=== PATIENT | female | born 1955 | race Caucasian/White ===

== ENCOUNTER 2020-09-19 06:00 | Day surgery (SDC) | payer BC, OTHER ==
[~2020-09-19 06:00] MED LIST: Acetaminophen 325 MG Tab PO SCH; Pregabalin 25 MG Cap PO SCH; oxyCODONE ER 10 MG TAB.ER PO SCH
[2020-09-19] MEDS ORDERED: Bupivacaine 0.25% 10 ML SDV ONE (06:23)
[2020-09-19] MEDS ORDERED: Vancomycin 1 GM SDV ONE (06:23)
[2020-09-19] MEDS ORDERED: Ropivacaine 0.5% 5 MG/ML 30 ML SDV ONE (06:32)
[2020-09-19] MEDS ORDERED: EPINEPHrine 1 MG/ML SDV ONE (06:32)
[2020-09-19] MEDS ORDERED: Lidocaine 1% 4 ML ONE (06:35)
[2020-09-19] MEDS ORDERED: Midazolam 1 MG/ML 2 ML SDV ONE (06:35)
[2020-09-19] MEDS ORDERED: ceFAZolin 1 GM Vial ONE (06:35)
[2020-09-19] MEDS ORDERED: Lactated Ringers 1,000 ML ONE (06:35)
[2020-09-19] MEDS ORDERED: Propofol 200 MG/20 ML SDV ONE (06:35)
[2020-09-19] MEDS ORDERED: Ondansetron 4 MG/2 ML SDV ONE (06:35)
[2020-09-19] MEDS ORDERED: fentaNYL 250 MCG/5 ML SDV ONE (06:36)
[2020-09-19] MEDS ORDERED: Dexamethasone 4 MG/ML 5 ML MDV ONE (06:36)
[2020-09-19] MEDS ORDERED: Sodium Chloride 0.9% 10 ML Syringe FLUSH PRN (07:00)
[2020-09-19] MEDS ORDERED: Lidocaine 1%/Sod Bicarbonate in NS 8.4% 1 ML Syringe IDERM PRN (07:00)
[2020-09-19] MEDS ORDERED: Lactated Ringers 1,000 ML IV SCH (07:00)
[2020-09-19] MEDS ORDERED: Ketorolac 15 MG/ML SDV ONE (08:06)
[2020-09-19] MEDS ORDERED: Ketamine 500 mg/10 ML MDV ONE (08:12)
[2020-09-19] MEDS ORDERED: HYDROmorphone 0.5 MG/0.5 ML Syringe IVPUSH PRN (08:20)
[2020-09-19] MEDS ORDERED: Ondansetron 4 MG/2 ML SDV IVPUSH PRN (08:20)
[2020-09-19] MEDS ORDERED: fentaNYL 100 MCG/2 ML SDV IVPUSH PRN (08:20)
--- NOTE | 2020-09-19 08:20 | PCM.PREANE ---
Preanesthetic Assessment - Procedure Proposed Procedure: Right Reverse Total Shoulder - Anesthesia/Transfusion/Family Hx Anesthesia History: Prior Anesthesia Without Reaction Family History of Anesthesia Reaction: No - Review of Systems General: No Symptoms Pulmonary: Cough (Mornings. 11/18 ppd smoker ) Cardiovascular: No Symptoms Gastrointestinal: No Symptoms Neurological: No Symptoms Other: Reports: None - Physical Assessment NPO Status Date: 09/18/20 NPO Status Time: 23:30 Vital Signs: Last Vital Signs Temp 36.7 C 09/19/20 06:22 Pulse 81 09/19/20 07:04 Resp 22 H 09/19/20 07:04 BP 99/56 L 09/19/20 07:04 Pulse Ox 97 09/19/20 07:04 Height: 1.55 m Weight: 52.617 kg ASA Class: 2 Mental Status: Alert & Oriented x3 Airway Class: Mallampati = 2 Dentition: Reports: Partial (Upper) Thyro-Mental Finger Breadths: 2 Mouth Opening Finger Breadths: 3 ROM/Head Extension: Full Lungs: Clear to Auscultation, Normal Respiratory Effort Cardiovascular: Regular Rate, Regular Rhythm - Lab Values: Laboratory Last Values MRSA (PCR) Negative 09/03/20 16:35 - Allergies Allergies/Adverse Reactions: Allergies Allergy/AdvReac Type Severity Reaction Status Date / Time No Known Allergies Allergy Verified 09/18/20 15:07 - Anesthesia Plan Pre-Op Medication Ordered: Anxiolytic - Acknowledgements Anesthesia Type Planned: General Anesthesia, Regional Block (Preoperative Interscalene nerve block for post op pain management) Pt an Appropriate Candidate for the Planned Anesthesia: Yes Alternatives and Risks of Anesthesia Discussed w Pt/Guardian: Yes Pt/Guardian Understands and Agrees with Anesthesia Plan: Yes PreAnesthesia Questionnaire HEENT History: Reports: Impaired Vision Cardiovascular History: Reports: None Respiratory History: Reports: None Gastrointestinal History: Reports: None 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 Musculoskeletal History: Reports: None Neurological History: Reports: None Psychiatric History: Reports: None Endocrine/Metabolic History: Reports: None Hematologic History: Reports: None Immunologic History: Reports: None Oncologic (Cancer) History: Reports: None Dermatologic History: Reports: None - Infectious Disease History Infectious Disease History: Reports: None - Past Surgical History Head Surgeries/Procedures: Reports: None HEENT Surgical History: Reports: Cataract Surgery Cardiovascular Surgical History: Reports: None Respiratory Surgical History: Reports: None GI Surgical History: Reports: None Female Surgical History: Reports: Tubal Ligation Male Surgical History: Reports: None Endocrine Surgical History: Reports: None Neurological Surgical History: Reports: None Musculoskeletal Surgical History: Reports: None Oncologic Surgical History: Reports: None Dermatological Surgical History: Reports: None - SUBSTANCE USE Tobacco Use Status *Q: Current Every Day Tobacco User Recreational Drug Use History: No - HOME MEDS Home Medications: Home Meds Acetaminophen [Tylenol] 650 mg PO Q6H PRN 09/18/20 [History] Calcium Carbonate [Calcium] 500 mg PO DAILY 09/18/20 [History] Cholecalciferol (Vitamin D3) [Vitamin D3] 5,000 unit PO DAILY 09/18/20 [History] Ibuprofen 200 - 600 mg PO Q6H PRN 09/18/20 [History] Multivitamin [Poly-Vitamin] 1 tab PO DAILY 09/18/20 [History] Naproxen Sodium [Aleve] 220 mg PO TID PRN 09/18/20 [History] Vit A/Vit C/Vit E/Zinc/Copper [Preservision Areds Softgel] 1 tab PO DAILY 09/18/20 [History] Aspirin [Aspirin EC] 325 mg PO DAILY #40 tablet.dr 09/19/20 [Rx] Cyclobenzaprine [Flexeril] 10 mg PO BID PRN #20 tab 09/19/20 [Rx] oxyCODONE 5 - 10 mg PO Q4H PRN #60 tab 09/19/20 [Rx] - CURRENT (IN HOUSE) MEDS Current Meds: Current Medications Acetaminophen (Tylenol) 975 mg PO ONETIME [facility] Stop: 09/19/20 16:00 Last Admin: 09/19/20 06:22 Dose: 975 mg Documented by: Lactated Ringer's (Ringers, Lactated) 1,000 mls @ 125 mls/hr IV ASDIRECTED [facility] Stop: 09/19/20 23:00 Last Admin: 09/19/20 06:20 Dose: 125 mls/hr Documented by: Lidocaine/Sodium Bicarbonate (Buffered Lidocaine 1% In Ns 8.4%) 0.25 ml IDERM ONETIME PRN PRN Reason: Prior to IV Start Stop: 09/19/20 23:00 Last Admin: 09/19/20 06:31 Dose: 0.25 ml Documented by: Oxycodone HCl (Oxycontin) 10 mg PO ONETIME [facility] Stop: 09/19/20 16:00 Last Admin: 09/19/20 06:24 Dose: 10 mg Documented by: Pregabalin (Lyrica) 50 mg PO ONETIME [facility] Stop: 09/19/20 16:00 Last Admin: 09/19/20 06:25 Dose: 50 mg Documented by: Sodium Chloride (Saline Flush) 10 ml FLUSH ASDIRECTED PRN PRN Reason: Keep Vein Open Stop: 09/19/20 18:00 Discontinued Medications Bupivacaine HCl (Sensorcaine-Mpf 0.25%) Confirm Administered Dose 30 ml .ROUTE .STK-MED ONE Stop: 09/19/20 06:24 Cefazolin Sodium (Ancef) Confirm Administered Dose 2 gm .ROUTE .STK-MED ONE Stop: 09/19/20 06:36 Dexamethasone (Dexamethasone) Confirm Administered Dose 20 mg .ROUTE .STK-MED ONE Stop: 09/19/20 06:37 Epinephrine HCl (Adrenalin) Confirm Administered Dose 1 mg .ROUTE .STK-MED ONE Stop: 09/19/20 06:33 Fentanyl (Sublimaze) Confirm Administered Dose 250 mcg .ROUTE .STK-MED ONE Stop: 09/19/20 06:37 Lidocaine HCl (Xylocaine-Mpf 1%) Confirm Administered Dose 4 mls @ as directed .ROUTE .STK-MED ONE Stop: 09/19/20 06:36 Lactated Ringer's (Ringers, Lactated) Confirm Administered Dose 1,000 mls @ as directed .ROUTE .STK-MED ONE Stop: 09/19/20 06:36 Ketamine HCl (Ketalar) Confirm Administered Dose 500 mg .ROUTE .STK-MED ONE Stop: 09/19/20 08:13 Ketorolac Tromethamine (Toradol) Confirm Administered Dose 15 mg .ROUTE .STK-MED ONE Stop: 09/19/20 08:07 Midazolam HCl (Versed 1 Mg/Ml) Confirm Administered Dose 2 mg .ROUTE .STK-MED ONE Stop: 09/19/20 06:36 Miscellaneous Medication (Phenylephrine 1 Mg/10 Ml-Ns) Confirm Administered Dose 1 mg .ROUTE .STK-MED ONE Stop: 09/19/20 08:07 Ondansetron HCl (Zofran) Confirm Administered Dose 4 mg .ROUTE .STK-MED ONE Stop: 09/19/20 06:36 Propofol (Diprivan 20 Ml) Confirm Administered Dose 400 mg .ROUTE .STK-MED ONE Stop: 09/19/20 06:36 Ropivacaine (Naropin 0.5%) Confirm Administered Dose 30 ml .ROUTE .STK-MED ONE Stop: 09/19/20 06:33 Tranexamic Acid (Cyklokapron) Confirm Administered Dose 1,000 mg .ROUTE .STK-MED ONE Stop: 09/19/20 06:24 Vancomycin HCl (Vancomycin) Confirm Administered Dose 1 gm .ROUTE .STK-MED ONE Stop: 09/19/20 06:24
--- NOTE | 2020-09-19 08:24 | PCM.SN.2 ---
- Free Text/Narrative Note: Anesthesia Procedure Note: (Interscalene Block Note) Date: 09/19/2020 Time Out: 0651 Start: 0655 Stop: 0704 Current Procedure: Right Interscalene Block under US guidance for postoperative pain control requested by Dr. Betts. Patient chart reviewed, risk/benefits discussed with patient, consent obtained. Patient positioned supine, monitors/alarms on, oxygen placed via nasal cannula at 2 LPM. Right shoulder prepped with two chloropreps. Sterile drapes placed with aseptic technique noted. Under US guidance right subclavian artery visualized along with the left brachial plexus. Plexus followed up to C6 cricoid level, and area localized with 1mls of 1% lidocaine. 22gauge 2 inch stimiplex needle advanced under US with 0.6mV with stimulation of biceps noted. Good stimulation noted with decreased voltage and absent at 0.2mVs. 1ml of Normal Saline injected with loss of stimulation noted to confirm needle not placed intraneurally. Incremental dosing of 5mls with negative aspiration noted prior to each injection of 0.5% ropivacaine with 1:200,000 epinephrine. Total volume=30mls. Mrs. Simpson tolerated the procedure well. No complications were noted. Vital signs stable throughout the procedure. See Nursing Notes for vital signs. Vital signs stable throughout. Garcia Lara CRNA
--- NOTE | 2020-09-19 09:21 | PCM.POSTAN ---
POST ANESTHESIA ASSESSMENT - MENTAL STATUS Mental Status: Alert, Oriented - VITAL SIGNS Vital Signs: Last Vital Signs Temp 36.7 C 09/19/20 06:22 Pulse 81 09/19/20 07:04 Resp 22 H 09/19/20 07:04 BP 99/56 L 09/19/20 07:04 Pulse Ox 97 09/19/20 07:04 0915 97 f 88 17 98% 109/84 - RESPIRATORY Respiratory Status: Respiratory Rate WNL, Airway Patent, O2 Saturation Stable, Supplemental Oxygen - CARDIOVASCULAR CV Status: Pulse Rate WNL, Blood Pressure Stable - GASTROINTESTINAL GI Status: No Symptoms - PAIN Pain Score: 0 - POST OP HYDRATION Hydration Status: Adequate & Stable
--- NOTE | 2020-09-19 12:34 | CR ---
"PROCEDURE INFORMATION: Exam: FL Fluoroscopy, Up to 1 Hour Physician Time; Radiologist Not Present For Fluoroscopy Exam date and time: 09/19/2020 9:43 AM Age: 65 years old Clinical indication: Device placement; Additional info: Right total reverse shoulder replacement; Intraoperative films TECHNIQUE: Imaging protocol: Fluoroscopy , up to 1 hour physician or other qualified health sub acute care nurse time. This radiologist did not supervise this procedure. Exam supervised by facility personnel. Report for radiation dosage reporting and documentation only. COMPARISON: No relevant prior studies available. RADIATION DOSE METRICS: Fluoroscopy time (seconds): 4.5 seconds, continuous mode. Number of fluoro spot images: 4 submitted. Reference air kerma (RAFFY): Not provided. FINDINGS: Procedural imaging: Images submitted during sequential placement of the humeral component of the reverse arthroplasty, initial images demonstrate preceding placement of scapular glenoid component. Final images in the frontal projection demonstrate final position of the components which appear to be in good alignment. Notes: Fluoroscopy supervised by facility personnel. See also separate procedure report. The interpreting radiologist was not present at the fluoroscopy. IMPRESSION: Fluoroscopy dosage documentation. See also separate procedure notes. Thank you for allowing us to participate in the care of your patient. [facility] | Final Radiology Report CONFIDENTIALITY STATEMENT This report is intended only for use by the referring physician, and only in accordance with law. If you received this in error, call [phone]. Page 2 of 2 Dictated and Authenticated by: Olu Cruz MD 09/19/2020 10:25 AM Central Time ([place] & [place]) [facility]"
--- NOTE | 2020-09-19 12:38 | CR ---
PROCEDURE INFORMATION: Exam: XR Right Shoulder Exam date and time: 09/19/2020 10:31 AM Age: 65 years old Clinical indication: Screening exam; Post op TECHNIQUE: Imaging protocol: XR Right shoulder. Views: AP portable single view. COMPARISON: No relevant prior studies available. FINDINGS: Bones/joints: Right shoulder reverse arthroplasty. Appropriate component position and alignment. Soft tissues: Operative site soft tissue emphysema. IMPRESSION: 1. Postoperative changes as above. 2. No acute bony or hardware abnormality identified. Thank you for allowing us to participate in the care of your patient. Dictated and Authenticated by: Olu Cruz MD 09/19/2020 12:09 PM Central Time ([place] & [place]) [facility]
--- NOTE | 2020-09-20 16:11 | PCM48HPAN ---
Post Anesthesia Note - EVALUATION WITHIN 48HRS OF ANESTHETIC Vital Signs in Normal Range: Yes Patient Participated in Evaluation: Yes Respiratory Function Stable: Yes Airway Patent: Yes Cardiovascular Function Stable: Yes Hydration Status Stable: Yes Pain Control Satisfactory: Yes Nausea and Vomiting Control Satisfactory: Yes Mental Status Recovered: Yes Vital Signs: Last Vital Signs Temp 36.1 C 09/19/20 11:46 Pulse 88 09/19/20 11:46 Resp 16 09/19/20 11:46 BP 115/65 09/19/20 11:46 Pulse Ox 96 09/19/20 11:46
--- NOTE | 2020-10-04 12:43 | PCM.OPNOTE ---
- General Post-Op/Procedure Note Date of Surgery/Procedure: 09/19/20 Operative Procedure(s): right reverse total shoulder arthroplasty Pre Op Diagnosis: right shoulder rotator cuff tear arthropathy Post-Op Diagnosis: Same Anesthesia Technique: General ET Tube, Regional Block Primary Surgeon: Alberto Betts Anesthesia Provider: Lyudmila Lara Traffic Supervisor: Sherry Monteiro Traffic Supervisor: Kirsten Mir EBL in mLs: 80 Complications: None Condition: Good Free Text/Narrative:: 28 baseplate 11mm stem 32+6 glenosphere +4 poly
--- NOTE | 2020-10-04 13:56 | OR ---
DATE OF OPERATION: 09/19/2020 SURGEON: Alberto Betts MD OPERATION PERFORMED: Right reverse total shoulder arthroplasty. PREOPERATIVE DIAGNOSIS: Right shoulder rotator cuff tear arthropathy. POSTOPERATIVE DIAGNOSIS: Right shoulder rotator cuff tear arthropathy. ANESTHESIA: General endotracheal intubation with regional interscalene block. ANESTHESIA PROVIDER: Dr. Mirtha Schwartz. DECK WORKER: Kirsten Mir LPN ESTIMATED BLOOD LOSS: 80 mL. COMPLICATIONS: None. CONDITION: Stable. IMPLANTS: 1. Abdon size 28 mm concentric glenoid base plate. 2. Abdon 11 mm humeral stem 135 degree. 3. 32 +6 mm glenosphere. 4. 36 +4 mm polyethylene liner. DESCRIPTION OF PROCEDURE: The patient was identified in the preoperative holding area. Proper site was marked and identified by the surgeon. The patient was taken back to the operative theater, where after adequate anesthesia, the patient's right upper extremity was sterilely prepped and draped in usual sterile fashion. OR time- out was performed. The patient received 2 g IV Ancef. At this time, standard deltopectoral incision was made after the patient was placed in reverse Trendelenburg position. This was taken down to the cephalic vein. The cephalic vein was identified. The deltopectoral interval was exposed. A Fukuda retractor was then used to retract the cephalic vein as well as the deltoid laterally. Hohmann was used to retract the pectoralis tendon medially. At this time, the clavipectoral fascia was incised and the conjoint tendon was retracted medially. Anterior humeral circumflex vessels were then ligated. Biceps tendon was identified and sub-pec tenodesis was performed. Resection of the biceps tendon was then done all the way back to the level of the glenoid. Peel down of the subscapularis tendon was then done and the humeral head was then dislocated. At this time, humeral head cut was then completed and found to be adequate. Attention was turned to the glenoid. Anterior and posterior glenoid retractors were placed. Circumferential removal of any remaining labrum as well as biceps was done at this time as well as a partial capsulectomy. Guide pin was then placed in a center-center position with roughly 10 to 20 degrees of inferior tilt and 28 mm concentric reamer was then utilized until there was good bleeding cancellous bone. The 28 mm glenoid base plate was then screwed into place with a central compression screw and then an inferior and superior locking screw in divergent fashion were placed. All were found to have adequate purchase. A 32 +6 glenosphere was then impacted into place and was found to be securely fixed. Attention was turned to the humerus again. Starting with an 8 broach, I was able to broach up to a size 13, which was found to be rotationally and vertically stable. Calcar planer was then used to the humerus and the trial +4 liner was reduced. The patient was found to have full range of motion with no over-tensioning of the deltoid or the conjoint tendon. C-arm fluoroscopy showed all parts to be properly positioned with no signs of fracture. At this time, it was dislocated. The size 11 stem 135 degree with +4 poly was then constructed on the back table. This was then impacted into the humerus en bloc and the shoulder was then reduced. C-arm fluoroscopy showed all components to be well aligned throughout range of motion. 1 L of pulse lavage irrigation with Ancef was irrigated through the right shoulder and then Irrisept was irrigated through the right shoulder. Topical tranexamic acid and vancomycin powder were applied. 2-0 Vicryl was used subcutaneously. Prineo was used for the skin. The patient tolerated the procedure well and was sent to PACU in stable condition with a sterile soft dressing and a pillow sling. MMTRUE /[id number]
== END 2020-09-19 12:30 | disposition home or self-care (01) ==
LOC: JD.SDS 06:00
PROVIDERS: ATTEND Orthopaedic Surgery
DX: M75.101 Unspecified rotator cuff tear or rupture of right shoulder, not specified as traumatic (principal); M12.811 Other specific arthropathies, not elsewhere classified, right shoulder; F17.210 Nicotine dependence, cigarettes, uncomplicated; G89.18 Other acute postprocedural pain; Z79.899 Other long term (current) drug therapy; Z98.890 Other specified postprocedural states; Z79.82 Long term (current) use of aspirin
CPT/HCPCS: 23474; 73020; 76000; 87641; 97110; 97161; 97165; A9270; C1713; C1769; C1776; J0171; J0690; J1100; J1885; J2001; J2250; J2370; J2405; J2704; J2795; J3010; J3370; J7120; 01638; 64415; J3490

== ENCOUNTER 2020-09-22 13:31 | Emergency (ER) | payer OTHER ==
--- NOTE | 2020-09-22 14:50 | EDM.PDOC ---
ED HPI GENERAL MEDICAL PROBLEM - General Chief Complaint: Lower Extremity Injury/Pain Stated Complaint: SWOLLEN R KNEE Time Seen by Provider: 09/22/20 15:45 Source of Information: Reports: Patient, RN Notes Reviewed - History of Present Illness INITIAL COMMENTS - FREE TEXT/NARRATIVE: 65 yr old female had R shoulder replacement 3 days ago. Surgery went well. However this morning awakened with swollen, painful R knee. No fever or chills. It does hurt to walk, move the knee somewhat. No known injury. Has slept in a recliner the last couple of nights. Was not aware of pain or swelling of the knee yesterday. 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 (see below) Right Knee Pain Score (Numeric/FACES): 6 - Related Data Allergies Allergy/AdvReac Type Severity Reaction Status Date / Time No Known Allergies Allergy Verified 09/18/20 15:07 Home Meds: Home Meds Acetaminophen [Tylenol] 650 mg PO Q6H PRN 09/18/20 [History] Calcium Carbonate [Calcium] 500 mg PO DAILY 09/18/20 [History] Cholecalciferol (Vitamin D3) [Vitamin D3] 5,000 unit PO DAILY 09/18/20 [History] Ibuprofen 200 - 600 mg PO Q6H PRN 09/18/20 [History] Multivitamin [Poly-Vitamin] 1 tab PO DAILY 09/18/20 [History] Naproxen Sodium [Aleve] 220 mg PO TID PRN 09/18/20 [History] Vit A/Vit C/Vit E/Zinc/Copper [Preservision Areds Softgel] 1 tab PO DAILY 09/18/20 [History] Aspirin [Aspirin EC] 325 mg PO DAILY #40 tablet.dr 09/19/20 [Rx] Cyclobenzaprine [Flexeril] 10 mg PO BID PRN #20 tab 09/19/20 [Rx] oxyCODONE 5 - 10 mg PO Q4H PRN #60 tab 09/19/20 [Rx] Past Medical History HEENT History: Reports: Impaired Vision Cardiovascular History: Reports: None Respiratory History: Reports: None Gastrointestinal History: Reports: None [employer] INTER[employer]IP History: Reports: None Musculoskeletal History: Reports: None Neurological History: Reports: None Psychiatric History: Reports: None Endocrine/Metabolic History: Reports: None Hematologic History: Reports: None Immunologic History: Reports: None Oncologic (Cancer) History: Reports: None Dermatologic History: Reports: None - Infectious Disease History Infectious Disease History: Reports: None - Past Surgical History Head Surgeries/Procedures: Reports: None HEENT Surgical History: Reports: Cataract Surgery Cardiovascular Surgical History: Reports: None Respiratory Surgical History: Reports: None GI Surgical History: Reports: None Female Surgical History: Reports: Tubal Ligation Endocrine Surgical History: Reports: None Neurological Surgical History: Reports: None Musculoskeletal Surgical History: Reports: None Oncologic Surgical History: Reports: None Dermatological Surgical History: Reports: None Social & Family History - Caffeine Use Caffeine Use: Reports: Coffee Review of Systems - Review of Systems Review Of Systems: See Below Constitutional: Denies: Chills, Fever Mouth/Throat: Reports: No Symptoms Respiratory: Denies: Shortness of Breath, Pleuritic Chest Pain Cardiovascular: Denies: Chest Pain GI/Abdominal: Denies: Abdominal Pain, Nausea, Vomiting Musculoskeletal: Reports: Joint Pain (R knee) Skin: Denies: Erythema Neurological: Reports: No Symptoms ED EXAM, GENERAL - Physical Exam Exam: See Below General Appearance: Alert, No Apparent Distress Head: Atraumatic Neck: Supple Respiratory/Chest: No Respiratory Distress, Lungs Clear, Normal Breath Sounds Cardiovascular: Regular Rate, Rhythm Extremities: Joint Swelling (There is swelling with effusion of R knee. There is tenderness of the lateral joint area, otherwise nontender. No warmth or visible erythema at time of exam, she has good motion with some generalized knee discomfort, leg is not warm, swollen, erythematous or tender), Other (R shoulder appropriately immobilized) Neurological: Alert, Oriented, No Motor/Sensory Deficits Skin Exam: Warm, Dry, Normal Color Course - Vital Signs Last Recorded V/S: Last Vital Signs Temp 99.1 F 09/22/20 14:33 Pulse 104 H 09/22/20 14:33 Resp 20 09/22/20 14:33 BP 125/70 09/22/20 14:33 Pulse Ox 94 L 09/22/20 14:33 - Orders/Labs/Meds Orders: Active Orders 24 hr Category Date Time Status CULTURE BODY FLUID + SMEAR [RM] Stat Lab 09/22/20 15:52 Received Labs: Laboratory Tests 09/22/20 Range/Units 15:52 Synovial Fluid Site Synovial fluid Synovial Color Colorless Synovial Appearance Slightly cloudy (CLEAR) Synovial Volume 20 Synovial WBC 17.790 H (0.200-0.600) k/mm*3 Synovial RBC 0.003 (0.00-0.003) 10*6/uL Synovial Seg Neuts 92.0 H (0-25) % Synovial Lymphocytes 8.0 (0-78) % Meds: Medications Discontinued Medications Generic Name Dose Route Start Last Admin Trade Name Yvette PRN Reason Stop Dose Admin Lidocaine HCl Confirm 09/22/20 15:45 Xylocaine 1% Administered 09/22/20 15:46 Dose 10 ml .ROUTE .STK-MED ONE - Re-Assessments/Exams Free Text/Narrative Re-Assessment/Exam: 09/23/20 07:24 I did tap her R knee, pulled out 47 ml mostly clear yellow fluid, WBC17,800, 92 seg, 8L. Culture also ordered. Pt given strong return precautions if she starts running fever, or knee starts getting much more swollen, red, warm, painful to return. I work the day after pt seen so will be checking with lab on he culture. Her knee feels much better. Discharge instr. as documented. Departure - Departure Time of Disposition: 14:47 Disposition: Home, Self-Care 01 Condition: Fair Clinical Impression: Knee pain, right, Knee effusion, right - Discharge Information Instructions: Acute Knee Pain, Adult, [id number] Referrals: PCP,None [Primary Care Provider] - Forms: ED Department Discharge Additional Instructions: Roshan wrap, ice packs and elevation R knee today and tomorrow. Rest leg and knee, increased activity slowly as tolerated. Return to ED for fever, chills or if k nee becomes more painful, swollen or if it becomes red and/or warm or infected looking in any way. Sepsis Event Note (ED) - Evaluation Sepsis Screening Result: No Definite Risk - My Orders Last 24 Hours: My Active Orders 09/22/20 15:52 CULTURE BODY FLUID + SMEAR [RM] Stat - Assessment/Plan Last 24 Hours: My Active Orders 09/22/20 15:52 CULTURE BODY FLUID + SMEAR [RM] Stat
[2020-09-22] MEDS ORDERED: Lidocaine 1% 10 ML MDV ONE (15:45)
== END 2020-09-22 17:22 | disposition home or self-care (01) ==
LOC: JD.ED 13:31
DX: M25.561 Pain in right knee (principal); M25.461 Effusion, right knee
CPT/HCPCS: 87070; 87205; 89060; 99282; 99283